=== PATIENT | female | born 1980 | race Caucasian/White ===

== ENCOUNTER 2016-03-22 18:03 | Emergency (ER) | payer OTHER ==
[~2016-03-22] VITALS: Ht 165.1 cm; Wt 77.2 kg
[~2016-03-22 18:03] MED LIST: BACTRIM,SEPT1 TABLET PO; IBUPROFEN800 MG PO; KEFLEX500 MG PO; PERCOCET 5/31 TABLET PO; TRAMADOL HCL50 MG PO
[2016-03-22] MEDS ORDERED: ACETAMINOPHEN PO (20:11)
[2016-03-22] MEDS ORDERED: NAPROSYN500 MG PO (22:01)
[2016-03-22] MEDS ORDERED: FLEXERIL10 MG PO (22:01)
[2016-03-22 22:52] VITALS: BP 121/74
== END 2016-03-22 22:53 | disposition home or self-care (01) ==
LOC: EME 18:03
DX: M54.5 Low back pain (principal); M25.551 Pain in right hip; W10.9XXA Fall (on) (from) unspecified stairs and steps, initial encounter; F17.200 Nicotine dependence, unspecified, uncomplicated
CPT/HCPCS: 72100; 72110; 73502; 99281; 99284